=== PATIENT | female | born 1995 | race Caucasian/White ===

== ENCOUNTER 2017-05-02 06:16 | Day surgery (SDC) | payer OTHER ==
[~2017-05-02 06:16] MED LIST: Lactated Ringers 1,000 ML IV SCH
[2017-05-02] MEDS ORDERED: SUBLIMAZE 100 MCG/2 ML IV ONE (06:17)
[2017-05-02] MEDS ORDERED: SUBLIMAZE 250 MCG/5 ML IV ONE (06:17)
[2017-05-02] MEDS ORDERED: Zemuron 100 MG/10 ML IV ONE (06:17)
[2017-05-02] MEDS ORDERED: BRIDION 200MG/2ML IV ONE (06:17)
[2017-05-02] MEDS ORDERED: Zofran 4 MG/2 ML VIAL IV ONE (06:17)
[2017-05-02] MEDS ORDERED: DIPRIVAN 200 MG/20 ML IV ONE (06:17)
[2017-05-02] MEDS ORDERED: Decadron 4 MG INJ IV ONE (06:17)
[2017-05-02] MEDS ORDERED: Versed 2 MG/2 ML Injection IV ONE (06:17)
[2017-05-02] MEDS ORDERED: Lactated Ringers 1,000 ML IV ONE ×3 (06:58→07:14)
--- NOTE | 2017-05-02 07:35 | HP ---
DATE OF SURGERY: 05/02/2017 ADMISSION DIAGNOSIS: Recurrent chronic tonsillitis. ANTICIPATED PROCEDURE: Bilateral tonsillectomy. HISTORY OF PRESENT ILLNESS: The patient has had recurrent chronic tonsillitis. She was seen and examined. She had more than four rounds of antibiotics for tonsillitis in a six month period. PAST MEDICAL HISTORY: ALLERGIES: NONE. MEDICATIONS: control pills. PAST SURGICAL HISTORY: Removal of preauricular cyst bilaterally. SOCIAL HISTORY: Negative. FAMILY HISTORY: Negative. REVIEW OF SYSTEMS: Negative. PHYSICAL EXAMINATION: VITAL SIGNS: Normal. HEENT: Cryptic tonsils. NECK: No lymphadenopathy. CHEST: Clear. COR: Regular. IMPRESSION: Recurrent chronic tonsillitis. PLAN: Bilateral tonsillectomy.
[2017-05-02] MEDS ORDERED: MEFOXIN 2 GM PREMIX** 2 GM/50 ML ML IV ONE (08:43)
[2017-05-02] MEDS ORDERED: MORPHINE SULFATE 10 MG/ML ONE (09:33)
[2017-05-02 10:30] VITALS: O2SAT 97
[2017-05-02 11:07] VITALS: BP 134/97; PULSE 75
--- NOTE | 2017-05-02 12:53 | OP ---
SURGERY DATE/TIME: 05/02/2017 0832 PREOPERATIVE DIAGNOSIS: Recurrent chronic tonsillitis. POSTOPERATIVE DIAGNOSIS: Recurrent chronic tonsillitis. PROCEDURE: Bilateral tonsillectomy, fulguration residual adenoid tissue upper right corner. SURGEON: Jorge Leger M.D. ANESTHESIA: General. COMPLICATIONS: None. ESTIMATED BLOOD LOSS: None. CONDITION: Stable. INDICATION: A patient requiring tonsillectomy presents for such. DESCRIPTION OF PROCEDURE: General anesthetic. Routine prep and drape. Modern mouth gag was applied. Left tonsil addressed. Anterior pillar was scored. Tonsil rolled out of tonsillar fossa. There were lots of chronic adhesions. There was about 50 sulfur granules. It was peeled off the base of the tongue. Hemostasis satisfactory. Anterior and posterior pillars intact. No residual tonsillar tissue. The uvula elevated. There was some residual adenoid at the right superior lateral pharyngeal corner this was electrocoagulated making sure not to get to aggressive towards the Eustachian tube opening. The right tonsil anterior pillar scored. Slightly larger tonsil, a little more inflamed. With care it was dissected from the pharyngeal musculature. It was less connected with the base of the tongue. Bottom edge was able to be taken early. Rolled back the posterior pillar and the posterior pillar dissection completed. Anterior-posterior pillars intact. No residual tonsillar tissue. Hemostasis satisfactory. Uvula elevated. No residual adenoid tissue after the previous coagulation. Field was totally dry. It was irrigated. It was dry. Mouth gag removed. Orofacial structures intact. Findings discussed with the family along with mother along with instructions.
== END 2017-05-02 11:30 | disposition home or self-care (01) ==
LOC: SDC 06:16
PROVIDERS: ATTEND Surgery
PROC: 0CTPXZZ Resection of Tonsils, External Approach (ICD-10-PCS; principal; 2017-05-02)
PROC: 0C5Q0ZZ Destruction of Adenoids, Open Approach (ICD-10-PCS; 2017-05-02)
DX: J35.01 Chronic tonsillitis (principal)
CPT/HCPCS: 84703; 88304; J0694; J1100; J2250; J2270; J2405; J2704; J3010